=== PATIENT | female | born 1960 | race Two or more races ===

== ENCOUNTER 2019-10-10 14:35 | Emergency (ER) | payer OTHER ==
[~2019-10-10] VITALS: Ht 154.9 cm; Wt 50.8 kg
[2019-10-10] MEDS ORDERED: METFORMIN HCL1000 M2 (14:44)
[2019-10-10] MEDS ORDERED: ATACAND32 MG (14:44)
[2019-10-10] MEDS ORDERED: LANTUS SOL100 UNIT/1 (14:45)
[2019-10-10] MEDS ORDERED: CRESTOR10 MG (14:45)
[2019-10-10] MEDS ORDERED: HYDROCHLOROTHIA25 MG (14:46)
== END 2019-10-10 23:20 | disposition home or self-care (01) ==
LOC: ER 14:35
DX: A04.8 Other specified bacterial intestinal infections (principal); E11.69 Type 2 diabetes mellitus with other specified complication

== ENCOUNTER 2019-12-16 00:42 | Emergency (ER) | payer OTHER ==
[~2019-12-16] VITALS: Ht 154.9 cm; Wt 68.0 kg
[~2019-12-16 00:42] MED LIST: ATACAND32 MG; CRESTOR10 MG; HYDROCHLOROTHIA25 MG; LANTUS SOL100 UNIT/1; METFORMIN HCL1000 M2
[2019-12-16] MEDS ORDERED: ONDANSETRON ODT4 MG SL (06:45)
[2019-12-16] MEDS ORDERED: SKELAXIN800 MG PO (06:45)
[2019-12-16] MEDS ORDERED: PEPCID AC20 MG PO (06:45)
[2019-12-16] MEDS ORDERED: DICLOFENAC POTA50 MG PO (06:45)
== END 2019-12-16 07:21 ==
LOC: ER 00:42
DX: M54.6 Pain in thoracic spine (principal); K29.70 Gastritis, unspecified, without bleeding; E11.65 Type 2 diabetes mellitus with hyperglycemia; Z20.828 Contact with and (suspected) exposure to other viral communicable diseases

== ENCOUNTER 2020-03-14 16:42 | Emergency (ER) | payer OTHER ==
[~2020-03-14] VITALS: Ht 154.9 cm; Wt 49.9 kg
[~2020-03-14 16:42] MED LIST changes: +DICLOFENAC POTA50 MG PO; +ONDANSETRON ODT4 MG SL; +PEPCID AC20 MG PO; +SKELAXIN800 MG PO
== END 2020-03-15 13:03 | disposition home or self-care (01) ==
LOC: ER 16:42
DX: U07.1 COVID-19 (principal); J45.998 Other asthma; E11.9 Type 2 diabetes mellitus without complications

== ENCOUNTER 2020-03-19 10:04 | Inpatient (IN) | payer OTHER ==
[~2020-03-19] VITALS: Ht 154.9 cm; Wt 47.6 kg
[2020-03-26] MEDS ORDERED: Proventyl Hfa 200 ME IH (16:16)
[2020-03-26] MEDS ORDERED: GUAIFENESI100 MG/52 PO (16:17)
[2020-03-26] MEDS ORDERED: BENZONATATE100 MG PO (16:17)
[2020-03-26] MEDS ORDERED: PEPCID AC20 MG PO (16:17)
[2020-03-26] MEDS ORDERED: Lantus 1000 UNITS/10 SUBCUTANEO (16:18)
[2020-03-26] MEDS ORDERED: VITAMIN C500 M1 PO (16:18)
[2020-03-26] MEDS ORDERED: MELATONIN5 M2 PO (16:18)
[2020-03-26] MEDS ORDERED: VITAMIN D3125 MC2 PO (16:18)
[2020-03-26] MEDS ORDERED: HUMALOG100 UNIT/1 SUBCUTANEO (16:19)
[2020-03-26] MEDS ORDERED: DECADRON6 MG PO (16:19)
[2020-03-26] MEDS ORDERED: DECADRON0.5 MG PO (16:20)
[2020-03-26] MEDS ORDERED: PROVENTIL HFA6.7 GM IH (16:29)
[2020-03-26] MEDS ORDERED: LANTUS SOL100 UNIT/1 SUBCUTANEO (16:29)
== END 2020-03-26 17:35 | disposition home or self-care (01) | DRG 177 ==
LOC: ER 10:04 → MEDJ 12:14
PROVIDERS: ADMIT Internal Medicine; ATTEND Internal Medicine
PROC: 8E0ZXY6 Isolation (ICD-10-PCS; principal; 2020-03-19)
PROC: 4A12X4Z Monitoring of Cardiac Electrical Activity, External Approach (ICD-10-PCS; 2020-03-19)
PROC: 4A033R1 Measurement of Arterial Saturation, Peripheral, Percutaneous Approach (ICD-10-PCS; 2020-03-19)
PROC: 3E0F7GC Introduction of Other Therapeutic Substance into Respiratory Tract, Via Natural or Artificial Opening (ICD-10-PCS; 2020-03-19)
DX: U07.1 COVID-19 (principal); J96.01 Acute respiratory failure with hypoxia; J12.89 Other viral pneumonia; E86.0 Dehydration; Z66 Do not resuscitate; E11.65 Type 2 diabetes mellitus with hyperglycemia

== ENCOUNTER 2020-05-23 11:14 | Emergency (ER) | payer OTHER ==
[~2020-05-23] VITALS: Ht 154.9 cm; Wt 51.7 kg
[~2020-05-23 11:14] MED LIST changes: +BENZONATATE100 MG PO; +DECADRON0.5 MG PO; +DECADRON6 MG PO; +GUAIFENESI100 MG/52 PO; +HUMALOG100 UNIT/1 SUBCUTANEO; +LANTUS SOL100 UNIT/1 SUBCUTANEO; +Lantus 1000 UNITS/10 SUBCUTANEO; +MELATONIN5 M2 PO; +PROVENTIL HFA6.7 GM IH; +Proventyl Hfa 200 ME IH; +VITAMIN C500 M1 PO; +VITAMIN D3125 MC2 PO
== END 2020-05-23 22:30 | disposition home or self-care (01) ==
LOC: ER 11:14
DX: E11.65 Type 2 diabetes mellitus with hyperglycemia (principal); Z79.4 Long term (current) use of insulin; Z20.822 Contact with and (suspected) exposure to COVID-19

== ENCOUNTER 2020-09-18 19:36 | Emergency (ER) | payer OTHER ==
[~2020-09-18] VITALS: Ht 154.9 cm; Wt 54.0 kg
[2020-09-18] MEDS ORDERED: METFORMIN HCL1000 M3 PO (20:02)
[2020-09-18] MEDS ORDERED: MONTELUKAST SOD10 MG PO (20:02)
[2020-09-18] MEDS ORDERED: ROSUVASTATIN CA40 MG PO (20:02)
[2020-09-18] MEDS ORDERED: AMLODIPINE BESY10 MG PO (20:02)
[2020-09-18] MEDS ORDERED: PROAIR HFA8.5 GM IH (20:02)
[2020-09-18] MEDS ORDERED: LOSARTAN POTASS50 MG PO (20:03)
[2020-09-18] MEDS ORDERED: HUMULIN 70100 UNIT/2 SUBCUTANEO (20:03)
== END 2020-09-18 23:42 | disposition home or self-care (01) ==
LOC: ER 19:36
DX: M94.0 Chondrocostal junction syndrome [Tietze] (principal); R07.89 Other chest pain; F41.8 Other specified anxiety disorders

== ENCOUNTER 2022-06-27 11:27 | Emergency (ER) | payer OTHER ==
[~2022-06-27] VITALS: Ht 154.9 cm; Wt 51.7 kg
[~2022-06-27 11:27] MED LIST changes: +AMLODIPINE BESY10 MG PO; +HUMULIN 70100 UNIT/2 SUBCUTANEO; +LOSARTAN POTASS50 MG PO; +METFORMIN HCL1000 M3 PO; +MONTELUKAST SOD10 MG PO; +PROAIR HFA8.5 GM IH; +ROSUVASTATIN CA40 MG PO
== END 2022-06-27 15:38 | disposition home or self-care (01) ==
LOC: ER 11:27
DX: M62.838 Other muscle spasm (principal); M54.9 Dorsalgia, unspecified; Z88.8 Allergy status to other drugs, medicaments and biological substances; E11.9 Type 2 diabetes mellitus without complications; I10 Essential (primary) hypertension

== ENCOUNTER 2024-09-09 16:26 | Emergency (ER) | payer OTHER ==
[~2024-09-09] VITALS: Ht 154.9 cm; Wt 59.9 kg
[~2024-09-09 16:26] MED LIST changes: +CRESTOR40 MG PO; +INSULIN GL100 UNIT/3 SUBCUTANEO; +IRBESARTAN-HCT1 EAC1 PO; +JENTADUETO 2.51 EAC2 PO; +LISINOPRIL20 MG PO; +NEURONTIN300 MG PO; +VERELAN PM300 MG PO
[2024-09-09] MEDS ORDERED: 0.9 % SODIUM CHLORIDE 1,000 ML IV STA (16:55)
[2024-09-09] MEDS ORDERED: cloNIDine HCL 0.2 MG TABLET PO ONE (17:00)
[2024-09-09 17:36] LABS: BASO % 0.4 % (0.1-1.2); EOS # 0.29 (0.04-0.54); HEMATOCRIT 37.3 % (34.1-44.9); HEMOGLOBIN 12.7 g/dL (11.2-15.7); LYMPH # 2.84 (1.18-3.74); MEAN CORPUSCULAR HEMOGLOBIN 29.7 pg (25.6-32.2); MONO # 0.92 (0.24-0.82); MONO % 9.4 % (4.7-12.5); NEUT # 5.68 (1.56-6.13); NEUT % 57.9 % (34.0-71.1); PLATELET COUNT 364 K/uL (163-369); RED BLOOD COUNT 4.27 M/uL (3.93-5.22); RED CELL DISTRIBUTION WIDTH 12.4 % (11.6-14.4)
[2024-09-09] MEDS ORDERED: CLONIDINE HCL 0.1 MG TABLET PO ONE (17:39)
[2024-09-09 18:03] LABS: CALCIUM 8.6 mg/dL (8.5-10.1); GFR 19.7; POTASSIUM 3.97 mEq/L (3.5-5.1)
[2024-09-09 18:05] LABS: CREATININE SERUM 2.48 mg/dL (0.55-1.02)
== END 2024-09-09 19:00 | disposition home or self-care (01) ==
LOC: ER 16:29
PROVIDERS: Emergency Medicine
DX: I10 Essential (primary) hypertension (principal); E11.9 Type 2 diabetes mellitus without complications; Z79.84 Long term (current) use of oral hypoglycemic drugs; Z88.5 Allergy status to narcotic agent

== ENCOUNTER 2024-09-10 17:10 | Inpatient (IN) | payer OTHER ==
[~2024-09-10] VITALS: Ht 154.9 cm; Wt 64.4 kg
[2024-09-10] MEDS ORDERED: SODIUM CHLORIDE 0.45 % 1,000 ML IV SCH (17:45)
[2024-09-10] MEDS ORDERED: hydrALAZINE HCL 20 MG VIAL IV ONE (17:45)
[2024-09-10] MEDS ORDERED: hydrALAZINE HCL 20 MG VIAL ONE ×2 (17:49→23:51)
[2024-09-10 18:15] LABS: BASO % 0.4 % (0.1-1.2); EOS # 0.27 (0.04-0.54); EOS % 2.7 % (0.7-7.0); HEMATOCRIT 38.3 % (34.1-44.9); HEMOGLOBIN 12.9 g/dL (11.2-15.7); LYMPH # 3.45 (1.18-3.74); LYMPH % 34.8 % (19.3-53.1); MEAN CORPUSCULAR HEMOGLOBIN 28.7 pg (25.6-32.2); MONO # 0.79 (0.24-0.82); NEUT # 5.32 (1.56-6.13); NEUT % 53.8 % (34.0-71.1); PLATELET COUNT 441 K/uL (163-369); RED BLOOD COUNT 4.49 M/uL (3.93-5.22); RED CELL DISTRIBUTION WIDTH 12.2 % (11.6-14.4)
[2024-09-10] MEDS ORDERED: ONDANSETRON HCL 2 MG/ML VIAL ONE (18:20)
[2024-09-10 18:36] LABS: INR 0.99; PARTIAL THROMBOPLASTIN TIME 28.6 SECONDS (22.0-34.0); PROTHROMBIN TIME 10.8 SECONDS (9.0-11.5)
[2024-09-10 18:41] LABS: BILIRUBIN TOTAL 0.4 mg/dL (0.3-1.2); CALCIUM 9.3 mg/dL (8.5-10.1); CREATININE SERUM 2.32 mg/dL (0.55-1.02); GFR 21.27; GLOBULINA 4.8 G/DL (2.4-3.5); POTASSIUM 3.87 mEq/L (3.5-5.1); TOTAL PROTEIN 7.8 gm/dL (6.4-8.2)
[2024-09-10] MEDS ORDERED: METOCLOPRAMIDE HCL 5 MG/ML VIAL ONE (19:31)
[2024-09-10] MEDS ORDERED: METOCLOPRAMIDE HCL 5 MG/ML VIAL IV ONE (19:45)
[2024-09-10] MEDS ORDERED: ONDANSETRON HCL 2 MG/ML VIAL IV ONE (19:45)
[2024-09-10] MEDS ORDERED: ONDANSETRON HCL 4 MG in 0.9 % SODIUM CHLORIDE 50 ML IV PRN (23:00)
[2024-09-10] MEDS ORDERED: hydrALAZINE HCL 20 MG VIAL IV PRN (23:00)
[2024-09-10] MEDS ORDERED: DEXTROSE 50 % IN WATER 0.5 G/ML DISP.SYRIN IV PRN (23:00)
[2024-09-10] MEDS ORDERED: INSULIN LISPRO 1,000 UNIT/10 ML UNITS SUBCUTANEO PRN (23:00)
[2024-09-11] VITALS: BP 176/80; O2SAT 95
[2024-09-11 01:48] LABS: COVID-19 AG NEGATIVE (NEGATIVE)
[2024-09-11 01:49] VITALS: BP 169/77; O2SAT 97
[2024-09-11 08:36] VITALS: BP 174/92; O2SAT 100
[2024-09-11] MEDS ORDERED: IRBESARTAN 300 MG TABLET PO SCH (09:00)
[2024-09-11] MEDS ORDERED: ENOXAPARIN SODIUM 40 MG/0.4 ML SYRINGE SUBCUTANEO SCH (09:00)
[2024-09-11] MEDS ORDERED: HYDROCHLOROTHIAZIDE 25 MG TABLET PO SCH (09:00)
[2024-09-11] MEDS ORDERED: AMLODIPINE BESYLATE 10 MG TABLET PO SCH (09:00)
[2024-09-11] MEDS ORDERED: ASPIRIN 81 MG TAB.CHEW PO SCH (12:00)
[2024-09-11] MEDS ORDERED: ATORVASTATIN CALCIUM 40 MG TABLET PO NR (12:15)
[2024-09-11] MEDS ORDERED: hydrALAZINE HCL 50 MG TABLET PO SCH (13:00)
[2024-09-11 16:00] VITALS: BP 174/77; O2SAT 97
[2024-09-11] MEDS ORDERED: ROSUVASTATIN CALCIUM 20 MG TABLET PO SCH (17:00)
[2024-09-12 00:47] VITALS: BP 164/84
[2024-09-12 06:46] LABS: BASO % 0.1 % (0.1-1.2); EOS # 0.02 (0.04-0.54); EOS % 0.1 % (0.7-7.0); HEMATOCRIT 35.2 % (34.1-44.9); HEMOGLOBIN 11.9 g/dL (11.2-15.7); LYMPH # 1.33 (1.18-3.74); LYMPH % 5.9 % (19.3-53.1); MEAN CORPUSCULAR HEMOGLOBIN 28.7 pg (25.6-32.2); MONO # 1.77 (0.24-0.82); MONO % 7.9 % (4.7-12.5); NEUT # 19.22 (1.56-6.13); NEUT % 85.3 % (34.0-71.1); PLATELET COUNT 397 K/uL (163-369); RED BLOOD COUNT 4.14 M/uL (3.93-5.22); RED CELL DISTRIBUTION WIDTH 12.7 % (11.6-14.4)
[2024-09-12 07:14] LABS: ALBUMIN 3.1 gm/dL (3.4-5.0); BILIRUBIN TOTAL 0.29 mg/dL (0.3-1.2); CALCIUM 8.5 mg/dL (8.5-10.1); CREATININE SERUM 3.59 mg/dL (0.55-1.02); GFR 12.85; GLOBULINA 4.1 G/DL (2.4-3.5); POTASSIUM 4.39 mEq/L (3.5-5.1); TOTAL PROTEIN 7.2 gm/dL (6.4-8.2)
[2024-09-12 08:22] VITALS: BP 180/80; O2SAT 95
[2024-09-12] MEDS ORDERED: ATORVASTATIN CALCIUM 40 MG TABLET PO SCH (09:00)
[2024-09-12] MEDS ORDERED: METOPROLOL TARTRATE 25 MG TABLET PO SCH (10:14)
[2024-09-12] MEDS ORDERED: hydrALAZINE HCL 25 MG,hydrALAZINE HCL 50 MG PO SCH (13:00)
[2024-09-12] MEDS ORDERED: hydrALAZINE HCL 50 MG TABLET PO SCH ×2 (13:00→21:00)
[2024-09-12 13:02] VITALS: BP 200/86; O2SAT 96
[2024-09-12] MEDS ORDERED: HYOSCYAMINE SULFATE 0.125 MG TAB.SUBL SL PRN (13:15)
[2024-09-12] MEDS ORDERED: hydrALAZINE HCL 20 MG VIAL IV STA (14:23)
[2024-09-12] MEDS ORDERED: hydrALAZINE HCL 20 MG VIAL IV PRN (14:23)
[2024-09-12 16:40] VITALS: BP 178/72
[2024-09-12] MEDS ORDERED: 0.9 % SODIUM CHLORIDE 1,000 ML IV SCH (17:15)
[2024-09-12] MEDS ORDERED: CLEVIDIPINE BUTYRATE 100 ML IV SCH (21:30)
[2024-09-12] MEDS ORDERED: NIFEDIPINE 30 MG TAB.SA.OSM PO SCH (21:30)
[2024-09-12] MEDS ORDERED: hydrALAZINE HCL 20 MG VIAL IV ONE (21:45)
[2024-09-12 22:30] VITALS: BP 182/74
[2024-09-13] VITALS (23 sets, daily range): BP systolic 66–172; BP diastolic 49–91; O2SAT 96–100
[2024-09-13] MEDS ORDERED: METOPROLOL TARTRATE 25 MG TABLET PO SCH (01:00)
[2024-09-13 02:41] LABS: ABG PH 7.495 (7.35-7.45); ABG pCO2 31.5 mmHg (35-45); BASE EXCESS 1.3 mmol/l; BICARBONATE 23.7 mmol/l (23-25); SaO2 85.7 %; Tco2 24.7 mmol/l
[2024-09-13] MEDS ORDERED: ATROPINE SULFATE 0.1 MG/ML DISP.SYRIN IV SCH (02:45)
[2024-09-13] MEDS ORDERED: EPINEPHRINE HCL/PF 1 MG/ML AMPUL IV PUSH SCH (02:45)
[2024-09-13] MEDS ORDERED: DOPamine HCL IN DEXTROSE 5 % 250 ML IV SCH ×2 (03:15→08:30)
[2024-09-13 03:37] LABS: ABG PO2 45.6 mmHg (80-100); allen test SATISFACTORY; mode NASAL CANNULA; o2 32 %; puncture site RADIAL RIGHT
[2024-09-13 05:53] LABS: ABG PH 7.476 (7.35-7.45); ABG PO2 252.4 mmHg (80-100); ABG pCO2 32.7 mmHg (35-45); BASE EXCESS 0.8 mmol/l; BICARBONATE 23.6 mmol/l (23-25); SaO2 99.9 %; Tco2 24.6 mmol/l
[2024-09-13 06:40] LABS: allen test SATISFACTORY; mode MECHANI VENTILATOR; o2 100 %; puncture site RADIAL RIGHT
[2024-09-13 06:53] LABS: BASO % 0.2 % (0.1-1.2); EOS # 0.04 (0.04-0.54); EOS % 0.3 % (0.7-7.0); HEMATOCRIT 32.7 % (34.1-44.9); LYMPH # 0.88 (1.18-3.74); LYMPH % 5.6 % (19.3-53.1); MEAN CORPUSCULAR HEMOGLOBIN 28.7 pg (25.6-32.2); MONO # 0.79 (0.24-0.82); MONO % 5.1 % (4.7-12.5); NEUT # 13.63 (1.56-6.13); NEUT % 87.4 % (34.0-71.1); PLATELET COUNT 391 K/uL (163-369); RED BLOOD COUNT 3.83 M/uL (3.93-5.22); RED CELL DISTRIBUTION WIDTH 12.9 % (11.6-14.4)
[2024-09-13 06:56] LABS: ALBUMIN 2.3 gm/dL (3.4-5.0); BILIRUBIN TOTAL 0.3 mg/dL (0.3-1.2); CALCIUM 7.8 mg/dL (8.5-10.1); CREATININE SERUM 3.87 mg/dL (0.55-1.02); GFR 11.79; GLOBULINA 3.3 G/DL (2.4-3.5); MAGNESIUM 2.1 mg/dL (1.8-2.4); POTASSIUM 3.81 mEq/L (3.5-5.1); TOTAL PROTEIN 5.6 gm/dL (6.4-8.2)
[2024-09-13] MEDS ORDERED: 0.9 % SODIUM CHLORIDE 1,000 ML IV SCH ×2 (07:15→14:30)
[2024-09-13] MEDS ORDERED: POLYVINYL ALCOHOL 15 ML DROPS OP SCH (09:00)
[2024-09-13] MEDS ORDERED: ENOXAPARIN SODIUM 30 MG/0.3 ML SYRINGE SUBCUTANEO SCH (09:00)
[2024-09-13] MEDS ORDERED: INSULIN NPH HUMAN ISOPHANE 1,000 UNITS/10 ML UNITS SUBCUTANEO SCH ×2 (09:00→17:00)
[2024-09-13] MEDS ORDERED: CHLORHEXIDINE GLUCONATE 15ML BRUSH KIT MM SCH (09:00)
[2024-09-13] MEDS ORDERED: PIPERACILLIN/TAZOBACTAM SODIUM 2.25 GM VIAL IV SCH ×2 (12:00→18:00)
[2024-09-13] MEDS ORDERED: MANNITOL 0.2 GM/ML (500ML) IV.SOLN IV ONE (15:21)
[2024-09-13] MEDS ORDERED: MANNITOL 0.2 GM/ML (500ML) IV.SOLN IV STA (15:27)
[2024-09-13] MEDS ORDERED: DEXAMETHASONE SODIUM PHOSPHATE 4 MG/ML VIAL IV STA (15:28)
[2024-09-14] VITALS (20 sets, daily range): BP systolic 96–138; BP diastolic 65–74; O2SAT 95–100
[2024-09-14] MEDS ORDERED: DEXAMETHASONE SODIUM PHOSPHATE 4 MG/ML VIAL IV SCH (01:00)
[2024-09-14 07:25] LABS: BASO % 0.1 % (0.1-1.2); HEMOGLOBIN 10.7 g/dL (11.2-15.7); LYMPH # 0.52 (1.18-3.74); LYMPH % 2.4 % (19.3-53.1); MEAN CORPUSCULAR HEMOGLOBIN 29.2 pg (25.6-32.2); MONO # 1.11 (0.24-0.82); MONO % 5.2 % (4.7-12.5); NEUT # 19.55 (1.56-6.13); NEUT % 91.8 % (34.0-71.1); PLATELET COUNT 327 K/uL (163-369); RED BLOOD COUNT 3.66 M/uL (3.93-5.22)
[2024-09-14 08:14] LABS: CALCIUM 7.6 mg/dL (8.5-10.1); GFR 9.33; POTASSIUM 5.11 mEq/L (3.5-5.1)
[2024-09-14 08:21] LABS: CREATININE SERUM 4.74 mg/dL (0.55-1.02)
[2024-09-14 08:21] LABS: ABG PO2 78.9 mmHg (80-100); ABG pCO2 34.3 mmHg (35-45); BASE EXCESS -6.1 mmol/l; BICARBONATE 18.5 mmol/l (23-25); SaO2 94.5 %; Tco2 19.5 mmol/l
[2024-09-14 08:41] LABS: allen test NO SATISFACTORY; mode MECHANI VENTILATOR; o2 40 %; puncture site RADIAL RIGHT
[2024-09-15] VITALS (21 sets, daily range): BP systolic 84–157; BP diastolic 56–90; O2SAT 97–100
[2024-09-15 07:38] LABS: BASO % 0.2 % (0.1-1.2); EOS # 0.06 (0.04-0.54); EOS % 0.2 % (0.7-7.0); HEMATOCRIT 33.4 % (34.1-44.9); HEMOGLOBIN 11.1 g/dL (11.2-15.7); LYMPH # 0.77 (1.18-3.74); LYMPH % 2.5 % (19.3-53.1); MEAN CORPUSCULAR HEMOGLOBIN 29.4 pg (25.6-32.2); MONO # 2.44 (0.24-0.82); NEUT # 26.92 (1.56-6.13); NEUT % 88.3 % (34.0-71.1); PLATELET COUNT 314 K/uL (163-369); RED BLOOD COUNT 3.78 M/uL (3.93-5.22); RED CELL DISTRIBUTION WIDTH 13.1 % (11.6-14.4)
[2024-09-15 08:08] LABS: CALCIUM 7.7 mg/dL (8.5-10.1); GFR 7.99; POTASSIUM 4.49 mEq/L (3.5-5.1)
[2024-09-15 08:16] LABS: CREATININE SERUM 5.42 mg/dL (0.55-1.02)
[2024-09-15 09:10] LABS: ABG PH 7.279 (7.35-7.45); ABG PO2 72.9 mmHg (80-100); ABG pCO2 30.8 mmHg (35-45); BASE EXCESS -11.2 mmol/l; BICARBONATE 14.1 mmol/l (23-25); SaO2 91.3 %; Tco2 15.1 mmol/l
[2024-09-15] MEDS ORDERED: INSULIN NPH HUMAN ISOPHANE 1,000 UNITS/10 ML UNITS SUBCUTANEO STA (11:03)
[2024-09-15 11:34] LABS: allen test SATISFACTORY; mode MECHANI VENTILATOR; o2 40 %; puncture site RADIAL RIGHT
[2024-09-15] MEDS ORDERED: SODIUM BICARBONATE 50MEQ/50ML VIAL IV NR ×2 (13:15→15:30)
[2024-09-15 14:30] LABS: ABG PH 7.316 (7.35-7.45); ABG PO2 88.7 mmHg (80-100); ABG pCO2 34.4 mmHg (35-45); BICARBONATE 17.2 mmol/l (23-25); SaO2 95.5 %; Tco2 18.2 mmol/l
[2024-09-15 14:47] LABS: allen test SATISFACTORY; o2 40 %; puncture site RADIAL LEFT
[2024-09-15 14:48] LABS: mode MECHANI VENTILATOR
[2024-09-15] MEDS ORDERED: SODIUM BICARBONATE 50MEQ/50ML VIAL IV ONE ×2 (15:15→16:24)
[2024-09-15] MEDS ORDERED: SODIUM BICARBONATE 50MEQ/50ML VIAL IV STA (16:29)
[2024-09-15] MEDS ORDERED: PIPERACILLIN/TAZOBACTAM SODIUM 2.25 GM VIAL IV SCH (17:00)
[2024-09-15] MEDS ORDERED: INSULIN NPH HUMAN ISOPHANE 1,000 UNITS/10 ML UNITS SUBCUTANEO SCH (17:00)
[2024-09-15 20:14] LABS: ABG PH 7.204 (7.35-7.45)
[2024-09-15 20:15] LABS: ABG PO2 204.6 mmHg (80-100); ABG pCO2 57.1 mmHg (35-45); BASE EXCESS -6.7 mmol/l; SaO2 99.4 %; Tco2 23.7 mmol/l; allen test SATISFACTORY; mode ROOM AIR; o2 21 %; puncture site RADIAL RIGHT
[2024-09-15 20:16] LABS: ABG PH 7.364 (7.35-7.45); ABG PO2 291.6 mmHg (80-100); ABG pCO2 37.4 mmHg (35-45); BASE EXCESS -3.9 mmol/l; BICARBONATE 20.9 mmol/l (23-25); SaO2 99.9 %
[2024-09-15 20:17] LABS: allen test SATISFACTORY; mode MECHANI VENTILATOR; o2 100 %; puncture site RADIAL RIGHT
[2024-09-15 20:33] LABS: ABG PH 7.292 (7.35-7.45); BASE EXCESS -6.8 mmol/l; BICARBONATE 19.4 mmol/l (23-25); SaO2 99.7 %; Tco2 20.6 mmol/l; o2 100 %
[2024-09-15 20:34] LABS: allen test SATISFACTORY; mode MECHANI VENTILATOR; puncture site RADIAL RIGHT
[2024-09-15 20:37] LABS: ABG PH 7.352 (7.35-7.45); ABG pCO2 45.7 mmHg (35-45)
[2024-09-15 20:37] LABS: ABG PO2 223.8 mmHg (80-100)
[2024-09-15 20:38] LABS: BASE EXCESS -1.1 mmol/l; BICARBONATE 24.8 mmol/l (23-25); SaO2 99.9 %; Tco2 26.2 mmol/l; o2 100 %
[2024-09-15 20:39] LABS: allen test SATISFACTORY; mode MECHANI VENTILATOR; puncture site RADIAL RIGHT
[2024-09-15 20:41] LABS: ABG PO2 323.2 mmHg (80-100)
[2024-09-15 20:43] LABS: ABG PH 7.186 (7.35-7.45)
[2024-09-15 20:44] LABS: ABG PO2 203.8 mmHg (80-100); ABG pCO2 68.6 mmHg (35-45); BASE EXCESS -4.5 mmol/l; BICARBONATE 25.4 mmol/l (23-25); SaO2 99.4 %; Tco2 27.5 mmol/l; allen test SATISFACTORY; mode NASAL CANNULA; o2 100 %; puncture site RADIAL RIGHT
[2024-09-16] VITALS (21 sets, daily range): BP systolic 114–159; BP diastolic 63–76; O2SAT 97–99
[2024-09-16 07:29] LABS: BASO % 0.2 % (0.1-1.2); HEMOGLOBIN 10.8 g/dL (11.2-15.7); LYMPH # 0.78 (1.18-3.74); LYMPH % 2.2 % (19.3-53.1); MEAN CORPUSCULAR HEMOGLOBIN 29.7 pg (25.6-32.2); MONO # 2.61 (0.24-0.82); MONO % 7.5 % (4.7-12.5); NEUT # 30.06 (1.56-6.13); NEUT % 86.3 % (34.0-71.1); PLATELET COUNT 327 K/uL (163-369); RED BLOOD COUNT 3.64 M/uL (3.93-5.22); RED CELL DISTRIBUTION WIDTH 13.2 % (11.6-14.4)
[2024-09-16 07:39] LABS: ALBUMIN 1.4 gm/dL (3.4-5.0); BILIRUBIN TOTAL 0.24 mg/dL (0.3-1.2); BILIRUBIN,CONJUGATED 0.11 mg/dL (0.0-0.2); BILIRUBIN,UNCONJUGATED 0.13 mg/dL (0.0-0.6); CALCIUM 7.3 mg/dL (8.5-10.1); GFR 7.46; GLOBULINA 4.2 G/DL (2.4-3.5); PHOSPHOROUS 4.2 mg/dL (2.5-4.9); POTASSIUM 4.02 mEq/L (3.5-5.1); TOTAL PROTEIN 5.6 gm/dL (6.4-8.2)
[2024-09-16 07:48] LABS: INR 0.99; PARTIAL THROMBOPLASTIN TIME 28.9 SECONDS (22.0-34.0); PROTHROMBIN TIME 10.8 SECONDS (9.0-11.5)
[2024-09-16 08:45] LABS: CREATININE SERUM 5.75 mg/dL (0.55-1.02)
[2024-09-16] MEDS ORDERED: INSULIN NPH HUMAN ISOPHANE 1,000 UNITS/10 ML UNITS SUBCUTANEO SCH ×2 (09:00)
[2024-09-16 09:12] LABS: ABG PH 7.334 (7.35-7.45); ABG PO2 85.9 mmHg (80-100); ABG pCO2 35.9 mmHg (35-45); BASE EXCESS -6.4 mmol/l; BICARBONATE 18.7 mmol/l (23-25); SaO2 95.4 %; Tco2 19.8 mmol/l
[2024-09-16 10:15] LABS: allen test NO SATISFACTORY; mode MECHANI VENTILATOR; o2 40 %; puncture site RADIAL RIGHT
[2024-09-16] MEDS ORDERED: CALCIUM GLUCONATE 100 MG/ML VIAL IV NR (15:00)
[2024-09-16] MEDS ORDERED: SODIUM BICARBONATE 50MEQ/50ML VIAL IV NR (15:00)
[2024-09-17] VITALS (23 sets, daily range): BP systolic 101–177; BP diastolic 59–79; O2SAT 96–100
[2024-09-17 06:45] LABS: BASO % 0.5 % (0.1-1.2); EOS # 0.05 (0.04-0.54); EOS % 0.2 % (0.7-7.0); HEMATOCRIT 29.6 % (34.1-44.9); HEMOGLOBIN 9.7 g/dL (11.2-15.7); LYMPH # 0.85 (1.18-3.74); LYMPH % 3.3 % (19.3-53.1); MEAN CORPUSCULAR HEMOGLOBIN 28.5 pg (25.6-32.2); MONO # 2.22 (0.24-0.82); MONO % 8.6 % (4.7-12.5); NEUT # 20.59 (1.56-6.13); NEUT % 79.8 % (34.0-71.1); PLATELET COUNT 307 K/uL (163-369); RED CELL DISTRIBUTION WIDTH 13.4 % (11.6-14.4)
[2024-09-17 07:40] LABS: ALBUMIN 1.2 gm/dL (3.4-5.0); ALKALINE PHOSPHATASE 206 U/L (50-136); ALT/SGPT 31 U/L (12-78); AST/SGOT 241 U/L (15-37); BILIRUBIN TOTAL 0.18 mg/dL (0.3-1.2); BILIRUBIN,CONJUGATED < 0.10 mg/dL (0.0-0.2); BILIRUBIN,UNCONJUGATED 0.08 mg/dL (0.0-0.6); CARBON DIOXIDE 23 mEq/L (21-32); PHOSPHOROUS 4.9 mg/dL (2.5-4.9); POTASSIUM 3.83 mEq/L (3.5-5.1); TOTAL PROTEIN 5.2 gm/dL (6.4-8.2)
[2024-09-17 08:06] LABS: ANION GAP 16 (10.0-20.0); BUN CREA RATIO 14 (7.0-25.0); CHLORIDE 116 mmol/L (98-107); GFR 6.67; GLUCOSE FASTING 406 mg/dL (65-100); OSMOLALITY SERUM 345 MOSM/KG (275-295)
[2024-09-17 08:07] LABS: BLOOD UREA NITROGEN 90 mg/dL (7-18); CREATININE SERUM 6.34 mg/dL (0.55-1.02); SODIUM 151 mmol/L (136-145)
[2024-09-17] MEDS ORDERED: INSULIN REGULAR, HUMAN 1,000 UNIT/10 ML UNITS SUBCUTANEO STA (09:33)
[2024-09-17 16:59] LABS: ABG PH 7.286 (7.35-7.45); ABG PO2 81.5 mmHg (80-100); ABG pCO2 44.5 mmHg (35-45); BASE EXCESS -5.8 mmol/l; BICARBONATE 20.7 mmol/l (23-25); SaO2 93.9 %; Tco2 22.1 mmol/l
[2024-09-17 17:00] LABS: allen test SATISFACTORY; mode MECHANI VENTILATOR; o2 40 %; puncture site RADIAL RIGHT
[2024-09-17] MEDS ORDERED: METRONIDAZOLE/SODIUM CHLORIDE 100 ML IV SCH (20:27)
[2024-09-17] MEDS ORDERED: FUROsemide 40 MG/4 ML VIAL IV ONE (20:30)
[2024-09-17] MEDS ORDERED: METHYLPREDNISOLONE SOD SUCC 500 MG VIAL IV SCH (20:30)
[2024-09-17] MEDS ORDERED: CALCIUM GLUCONATE 100 MG/ML VIAL IV ONE (20:45)
[2024-09-17] MEDS ORDERED: SODIUM CHLORIDE 0.45 % 1,000 ML IV SCH (20:45)
[2024-09-17] MEDS ORDERED: INSULIN REGULAR, HUMAN 1,000 UNIT/10 ML UNITS IV SCH (20:45)
[2024-09-17] MEDS ORDERED: ALBUMIN HUMAN-25 0.25GM/ML (50ML) VIAL IV ONE (20:45)
[2024-09-17] MEDS ORDERED: LINEZOLID IN DEXTROSE 5% 300 ML IV SCH (21:00)
[2024-09-17] MEDS ORDERED: CEFEPIME HCL 2,000 MG in 0.9 % SODIUM CHLORIDE 100 ML IV SCH (21:00)
[2024-09-17 21:04] LABS: ABG PH 7.319 (7.35-7.45); ABG PO2 85.8 mmHg (80-100); ABG pCO2 41.7 mmHg (35-45); BASE EXCESS -4.9 mmol/l; SaO2 95.3 %; Tco2 22.3 mmol/l
[2024-09-17] MEDS ORDERED: FUROsemide 40 MG/4 ML VIAL ONE (21:15)
[2024-09-17] MEDS ORDERED: CEFEPIME HCL 2,000 MG VIAL ONE (21:16)
[2024-09-17] MEDS ORDERED: METRONIDAZOLE/SODIUM CHLORIDE 500 MG/100 ML PIGGYBACK IV ONE (21:16)
[2024-09-17] MEDS ORDERED: CALCIUM GLUCONATE 100 MG/ML VIAL ONE (21:16)
[2024-09-17] MEDS ORDERED: LINEZOLID IN DEXTROSE 5% 600 MG/300 ML PIGGYBAG IV ONE (21:16)
[2024-09-17] MEDS ORDERED: INSULIN REGULAR, HUMAN 1,000 UNIT/10 ML UNITS ONE (21:19)
[2024-09-17 22:09] LABS: BASO % 0.6 % (0.1-1.2); HEMATOCRIT 28.6 % (34.1-44.9); LYMPH # 1.35 (1.18-3.74); LYMPH % 4.6 % (19.3-53.1); MEAN CORPUSCULAR HEMOGLOBIN 28.7 pg (25.6-32.2); MONO # 2.53 (0.24-0.82); MONO % 8.7 % (4.7-12.5); NEUT # 22.56 (1.56-6.13); NEUT % 77.5 % (34.0-71.1); PLATELET COUNT 279 K/uL (163-369); RED BLOOD COUNT 3.24 M/uL (3.93-5.22); RED CELL DISTRIBUTION WIDTH 13.6 % (11.6-14.4)
[2024-09-17 22:10] LABS: URINE APPEARANCE Turbid; URINE BILIRRUBIN Negative (NEGATIVE); URINE BLOOD Large; URINE COLOR Yellow; URINE KETONE Trace (NEGATIVE); URINE LEUKOCYTE Moderate; URINE NITRATE Negative; URINE UROBILINOGEN 0.2 E.U./dl
[2024-09-17 22:11] LABS: HEMOGLOBIN 9.3 g/dL (11.2-15.7)
[2024-09-17 22:13] LABS: URINE BACTERIA 762.5 uL (0.0-1933); URINE RBC 150.3 uL (0.0-20.8); URINE WBC 402.7 uL (0.0-23.2)
[2024-09-17 22:25] LABS: INR 0.99; PARTIAL THROMBOPLASTIN TIME 24.9 SECONDS (22.0-34.0); PROTHROMBIN TIME 10.8 SECONDS (9.0-11.5)
[2024-09-17 22:30] LABS: URINE EPITHELIAL CELLS > 201.7 uL (0.0-38.8); URINE GLUCOSE 250 MG/DL (NEGATIVE); URINE PROTEIN 100 (NEGATIVE)
[2024-09-17 22:30] LABS: ALBUMIN 1.4 gm/dL (3.4-5.0); ALKALINE PHOSPHATASE 211 U/L (50-136); ALT/SGPT 48 U/L (12-78); AST/SGOT 369 U/L (15-37); BILIRUBIN,CONJUGATED < 0.10 mg/dL (0.0-0.2); CALCIUM 6.8 mg/dL (8.5-10.1); CARBON DIOXIDE 21 mEq/L (21-32); GLOBULINA 3.2 G/DL (2.4-3.5); PHOSPHOROUS 5.5 mg/dL (2.5-4.9); POTASSIUM 4.32 mEq/L (3.5-5.1); TOTAL PROTEIN 4.6 gm/dL (6.4-8.2)
[2024-09-17 22:31] LABS: URINE CRYSTALS MODERATE /HPF
[2024-09-17 22:34] LABS: BUN CREA RATIO 15 (7.0-25.0); GFR 6.51
[2024-09-17 22:35] LABS: ANION GAP 16 (10.0-20.0); CHLORIDE 118 mmol/L (98-107); CREATININE SERUM 6.47 mg/dL (0.55-1.02); OSMOLALITY SERUM 340 MOSM/KG (275-295); SODIUM 151 mmol/L (136-145)
[2024-09-17 22:38] LABS: BLOOD UREA NITROGEN 94 mg/dL (7-18); GLUCOSE FASTING 300 mg/dL (65-100)
[2024-09-17 22:49] LABS: allen test SATISFACTORY; mode MECHANI VENTILATOR; o2 40 %; puncture site RADIAL RIGHT
[2024-09-18] VITALS (7 sets, daily range): BP systolic 101–167; BP diastolic 55–72; O2SAT 97–100
[2024-09-18] MEDS ORDERED: ALBUTEROL SULFATE 3 ML/2.5 MG AMPUL.NEB IH ONE ×2 (00:49→09:14)
[2024-09-18] MEDS ORDERED: INSULIN REGULAR, HUMAN 1,000 UNIT/10 ML UNITS ONE ×4 (02:42→09:17)
[2024-09-18] MEDS ORDERED: FUROsemide 40 MG/4 ML VIAL ONE (03:14)
[2024-09-18 06:01] LABS: ABG PH 7.189 (7.35-7.45); ABG pCO2 57.1 mmHg (35-45)
[2024-09-18 06:02] LABS: ABG PO2 268.2 mmHg (80-100); BASE EXCESS -7.6 mmol/l; BICARBONATE 21.3 mmol/l (23-25); SaO2 99.7 %
[2024-09-18 06:04] LABS: allen test NO SATISFACTORY; mode MECHANI VENTILATOR; o2 100 %; puncture site RADIAL RIGHT
[2024-09-18 06:28] LABS: BASO % 0.5 % (0.1-1.2); EOS # 0.01 (0.04-0.54); LYMPH % 7.1 % (19.3-53.1); MEAN CORPUSCULAR HEMOGLOBIN 28.7 pg (25.6-32.2); MONO # 3.39 (0.24-0.82); NEUT # 20.35 (1.56-6.13); NEUT % 72.5 % (34.0-71.1); PLATELET COUNT 258 K/uL (163-369); RED BLOOD COUNT 2.86 M/uL (3.93-5.22); RED CELL DISTRIBUTION WIDTH 13.7 % (11.6-14.4)
[2024-09-18 06:43] LABS: ALBUMIN 2.3 gm/dL (3.4-5.0); BILIRUBIN TOTAL 0.23 mg/dL (0.3-1.2); BILIRUBIN,CONJUGATED 0.1 mg/dL (0.0-0.2); BILIRUBIN,UNCONJUGATED 0.13 mg/dL (0.0-0.6); CALCIUM 7.6 mg/dL (8.5-10.1); GFR 6.56; GLOBULINA 2.8 G/DL (2.4-3.5); MAGNESIUM 2.1 mg/dL (1.8-2.4); PHOSPHOROUS 6.6 mg/dL (2.5-4.9); POTASSIUM 3.94 mEq/L (3.5-5.1); TOTAL PROTEIN 5.1 gm/dL (6.4-8.2)
[2024-09-18 07:04] LABS: INR 0.98; PARTIAL THROMBOPLASTIN TIME 27.3 SECONDS (22.0-34.0); PROTHROMBIN TIME 10.7 SECONDS (9.0-11.5)
[2024-09-18 07:10] LABS: CREATININE SERUM 6.43 mg/dL (0.55-1.02)
[2024-09-18 07:52] LABS: HEMATOCRIT 25.7 % (34.1-44.9); HEMOGLOBIN 8.2 g/dL (11.2-15.7); MONO % 12.1 % (4.7-12.5)
[2024-09-18] MEDS ORDERED: INSULIN REGULAR, HUMAN 1,000 UNIT/10 ML UNITS IV SCH (08:30)
[2024-09-18] MEDS ORDERED: METHYLPREDNISOLONE SOD SUCC IV SCH (09:45)
[2024-09-18] MEDS ORDERED: [UNRECOGNIZED DRUG - OTHER] IV SCH (09:45)
[2024-09-18] MEDS ORDERED: METHYLPREDNISOLONE SOD SUCC 125 MG VIAL IV SCH (09:45)
[2024-09-18 13:55] LABS: BASO % 0.4 % (0.1-1.2); EOS # 0.11 (0.04-0.54); EOS % 0.4 % (0.7-7.0); LYMPH # 1.81 (1.18-3.74); LYMPH % 7.3 % (19.3-53.1); MONO # 2.49 (0.24-0.82); NEUT # 18.42 (1.56-6.13); NEUT % 74.4 % (34.0-71.1); PLATELET COUNT 243 K/uL (163-369); RED BLOOD COUNT 2.86 M/uL (3.93-5.22); RED CELL DISTRIBUTION WIDTH 13.5 % (11.6-14.4)
[2024-09-18 14:40] LABS: ALBUMIN 2.1 gm/dL (3.4-5.0); BILIRUBIN TOTAL 0.31 mg/dL (0.3-1.2); BILIRUBIN,CONJUGATED 0.11 mg/dL (0.0-0.2); BILIRUBIN,UNCONJUGATED 0.2 mg/dL (0.0-0.6); GLOBULINA 2.8 G/DL (2.4-3.5); PHOSPHOROUS 6.2 mg/dL (2.5-4.9); POTASSIUM 3.8 mEq/L (3.5-5.1); TOTAL PROTEIN 4.9 gm/dL (6.4-8.2)
[2024-09-18 14:44] LABS: INR 0.97; PARTIAL THROMBOPLASTIN TIME 25.9 SECONDS (22.0-34.0); PROTHROMBIN TIME 10.6 SECONDS (9.0-11.5)
[2024-09-18 14:48] LABS: GFR 6.79
[2024-09-18 14:49] LABS: CREATININE SERUM 6.24 mg/dL (0.55-1.02)
[2024-09-18 14:50] LABS: HEMATOCRIT 25.4 % (34.1-44.9); HEMOGLOBIN 8.3 g/dL (11.2-15.7)
[2024-09-18] MEDS ORDERED: CEFEPIME HCL 2,000 MG in 0.9 % SODIUM CHLORIDE 100 ML IV SCH (17:00)
[2024-09-18] MEDS ORDERED: LINEZOLID IN DEXTROSE 5% 300 ML IV SCH (17:00)
[2024-09-18 19:22] LABS: URINE APPEARANCE Turbid; URINE BILIRRUBIN Negative (NEGATIVE); URINE BLOOD Moderate; URINE COLOR Yellow; URINE GLUCOSE Negative (NEGATIVE); URINE KETONE Negative (NEGATIVE); URINE LEUKOCYTE Trace; URINE NITRATE Negative; URINE UROBILINOGEN 0.2 E.U./dl
[2024-09-18 19:23] LABS: URINE BACTERIA 244.7 uL (0.0-1933); URINE CAST 7.95 uL (0.0-1.40); URINE EPITHELIAL CELLS 69.5 uL (0.0-38.8); URINE RBC 92.2 uL (0.0-20.8); URINE WBC 62.3 uL (0.0-23.2)
[2024-09-18 19:35] LABS: URINE PROTEIN 100 (NEGATIVE)
[2024-09-18 19:36] LABS: URINE CRYSTALS MANY /HPF; URINE MUCUS SCANT
[2024-09-18] MEDS ORDERED: MANNITOL 0.2 GM/ML (500ML) IV.SOLN IV SCH (20:30)
[2024-09-18] MEDS ORDERED: NOREPINEPHRINE BITARTRATE 8 MG in DEXTROSE 5 % IN WATER 250 ML IV SCH (20:30)
[2024-09-18 20:58] LABS: BASO % 0.4 % (0.1-1.2); EOS # 0.01 (0.04-0.54); LYMPH # 1.05 (1.18-3.74); LYMPH % 4.4 % (19.3-53.1); MEAN CORPUSCULAR HEMOGLOBIN 29.3 pg (25.6-32.2); MONO # 0.84 (0.24-0.82); MONO % 3.5 % (4.7-12.5); NEUT # 20.39 (1.56-6.13); NEUT % 85.2 % (34.0-71.1); PLATELET COUNT 249 K/uL (163-369); RED BLOOD COUNT 2.87 M/uL (3.93-5.22); RED CELL DISTRIBUTION WIDTH 13.4 % (11.6-14.4)
[2024-09-18 21:18] LABS: INR 0.98; PARTIAL THROMBOPLASTIN TIME 24.2 SECONDS (22.0-34.0); PROTHROMBIN TIME 10.7 SECONDS (9.0-11.5)
[2024-09-18 21:28] LABS: BILIRUBIN TOTAL 0.28 mg/dL (0.3-1.2); BILIRUBIN,CONJUGATED 0.14 mg/dL (0.0-0.2); BILIRUBIN,UNCONJUGATED 0.14 mg/dL (0.0-0.6); CALCIUM 7.8 mg/dL (8.5-10.1); MAGNESIUM 1.9 mg/dL (1.8-2.4); PHOSPHOROUS 6.2 mg/dL (2.5-4.9); POTASSIUM 4.46 mEq/L (3.5-5.1); TOTAL PROTEIN 4.8 gm/dL (6.4-8.2)
[2024-09-18 21:37] LABS: HEMATOCRIT 25.1 % (34.1-44.9); HEMOGLOBIN 8.4 g/dL (11.2-15.7)
[2024-09-18 22:04] LABS: GFR 6.96
[2024-09-18 22:10] LABS: CREATININE SERUM 6.11 mg/dL (0.55-1.02)
== END 2024-09-19 06:42 | disposition expired | DRG 64 ==
LOC: ER 17:10 → MEDI 23:02 → ICU 09-13 15:17 → ICU-2 09-19 06:25
PROVIDERS: General Practice; Internal Medicine; Internal Medicine Nephrology; Psychiatry & Neurology Clinical Neurophysiology; Student in an Organized Health Care Education/Training Program; ADMIT Internal Medicine; ATTEND Internal Medicine
PROC: BW28ZZZ Computerized Tomography (CT Scan) of Head (ICD-10-PCS; principal; 2024-09-10)
PROC: BB24ZZZ Computerized Tomography (CT Scan) of Bilateral Lungs (ICD-10-PCS; 2024-09-10)
PROC: BW21ZZZ Computerized Tomography (CT Scan) of Abdomen and Pelvis (ICD-10-PCS; 2024-09-10)
PROC: B345ZZZ Ultrasonography of Bilateral Common Carotid Arteries (ICD-10-PCS; 2024-09-10)
PROC: B246ZZZ Ultrasonography of Right and Left Heart (ICD-10-PCS; 2024-09-10)
PROC: 4A12X4Z Monitoring of Cardiac Electrical Activity, External Approach (ICD-10-PCS; 2024-09-11)
PROC: 5A1945Z Respiratory Ventilation, 24-96 Consecutive Hours (ICD-10-PCS; 2024-09-13)
DX: I63.89 Other cerebral infarction (principal); J96.90 Respiratory failure, unspecified, unspecified whether with hypoxia or hypercapnia; I67.4 Hypertensive encephalopathy; G93.49 Other encephalopathy; I16.9 Hypertensive crisis, unspecified; N17.8 Other acute kidney failure; I46.9 Cardiac arrest, cause unspecified; I11.0 Hypertensive heart disease with heart failure; I12.9 Hypertensive chronic kidney disease with stage 1 through stage 4 chronic kidney disease, or unspecified chronic kidney disease; E11.22 Type 2 diabetes mellitus with diabetic chronic kidney disease; N18.9 Chronic kidney disease, unspecified; Z79.4 Long term (current) use of insulin; R00.0 Tachycardia, unspecified; E11.65 Type 2 diabetes mellitus with hyperglycemia; D72.828 Other elevated white blood cell count; I87.8 Other specified disorders of veins